=== PATIENT | female | born 1955 | race African-American/Black ===

== ENCOUNTER 2016-08-16 14:37 | Emergency (ER) | payer SELFPAY ==
[~2016-08-16] VITALS: Ht 165.1 cm; Wt 75.0 kg
[2016-08-16 14:55] VITALS: BP 134/64
== END 2016-08-16 16:30 | disposition home or self-care (01) ==
LOC: ER 14:38
DX: B34.9 Viral infection, unspecified (principal); Z88.0 Allergy status to penicillin
CPT/HCPCS: 99282